=== PATIENT | female | born 1970 | race Caucasian/White ===

== ENCOUNTER 2017-04-20 09:40 | Emergency (ER) | payer MEDICAID, OTHER ==
[~2017-04-20] VITALS: Ht 167.6 cm; Wt 52.0 kg
[~2017-04-20 09:40] MED LIST: CEPH500C3 PO
[2017-04-20 09:42] VITALS: BP 139/81; PULSE 96; RESP 16; TEMP 98.5; O2SAT 99
--- NOTE | 2017-04-20 09:57 | PD ---
HPI Chief Complaint: Back/ Neck Pain or Injury Time Seen by Provider: 09:53 Travel History International Travel<30 days: No Contact w/Intl Traveler<30days: No Traveled to known affect area: No History of Present Illness HPI 47-year-old female complains of low back pain since this morning. She is a history of low back pain previously. There is radiation down the left leg. She states the pain is severe and worse with movement. The patient denies any fever. There has been no urinary retention, fecal incontinence or saddle anesthesia. The patient has no history of steroid or immunomodulators use. She has no history of cancer. She denies IV drug use. PFSH Past Medical History Arthritis: No Asthma: No Autoimmune Disease: No Anxiety: Yes Depression: No Heart Rhythm Problems: No Cancer: No Cardiovascular Problems: No High Cholesterol: No Chemotherapy: No Chest Pain: No Congestive Heart Failure: No COPD: No Cerebrovascular Accident: No Diabetes: No Endocrine: No GERD: No Genitourinary: Yes Hiatal Hernia: No Immune Disorder: No Kidney Stones: No Musculoskeletal: Yes Neurologic: No Psychiatric: Yes Reproductive: No Respiratory: No Migraines: No Radiation Therapy: No Renal Failure: No Seizures: No Sickle Cell Disease: No Sleep Apnea: No Thyroid Disease: No Ulcer: No ?: Not LMP: 02/24/2017-DENIES POSSIBILITY OF Past Surgical History AICD: No Arteriovenous Shunt: No Cardiac Surgery: No Ear Surgery: No Endocrine Surgery: No Eye Surgery: No Genitourinary Surgery: No Gynecologic Surgery: Yes (LAP) Insulin Pump: No Joint Replacement: No Oral Surgery: No Pacemaker: No Thoracic Surgery: No Social History Alcohol Use: Yes (OCCAS. MIX DRINKS) Tobacco Use: Yes (1/2 PPD) Substance Use: No Allergies-Medications (Allergen,Severity, Reaction): Coded Allergies: Bactrim (Verified Allergy, Severe, Hives, 04/20/17) *MDRO Multi-Drug Resistant Organism (Verified Allergy, Unknown, 04/20/17) MRSA Wound (Arm) 2004 Reported Meds & Prescriptions Reported Meds & Active Scripts Active Lortab (Hydrocodone-Acetaminophen) 5-325 Mg Tab 1-2 Tab PO Q6H PRN Review of Systems Except as stated in HPI: all other systems reviewed are Neg General / Constitutional: No: Fever Musculoskeletal: Positive: Pain Physical Exam Narrative GENERAL: 47-year-old female, appears to be in distress due to pain sitting on the side of her bed SKIN: Focused skin assessment warm/dry. HEAD: Atraumatic. Normocephalic. EYES: Pupils equal and round. No scleral icterus. No injection or drainage. ENT: No nasal bleeding or discharge. Mucous membranes pink and moist. NECK: Trachea midline. No JVD. CARDIOVASCULAR: Regular rate and rhythm. No murmur appreciated. RESPIRATORY: No accessory muscle use. Clear to auscultation. Breath sounds equal bilaterally. GASTROINTESTINAL: Abdomen soft, non-tender, nondistended. Hepatic and splenic margins not palpable. MUSCULOSKELETAL: Tenderness to palpation midline lumbar spine. No significant paraspinal tenderness. No gross deformity. NEUROLOGICAL: Knee flexion and extension normal. Ankle flexion and extension normal. Great toe dorsiflexion on the left is limited compared to the right. Hip flexion is equal bilaterally. Patient has normal gait. 2+ DTR reflexes bilaterally. PSYCHIATRIC: Appropriate mood and affect; insight and judgment normal. Data Data Last Documented VS Vital Signs Date Time Temp Pulse Resp B/P Pulse Ox O2 Delivery O2 Flow Rate FiO2 04/20/17 11:28 80 16 108/68 97 Room Air 04/20/17 09:42 98.5 VS reviewed Orders Iv Access Insert/Monitor (04/20/17 10:07) Ecg Monitoring (04/20/17 10:07) Oximetry (04/20/17 10:07) Sodium Chloride 0.9% Flush (Ns Flush) (04/20/17 10:15) Ketorolac Inj (Toradol Inj) (04/20/17 10:15) Hydromorphone Pf Inj (Dilaudid Pf Inj) (04/20/17 10:15) Basic Metabolic Panel (Bmp) (04/20/17 10:22) Complete Blood Count With Diff (04/20/17 10:22) Westergren Sedimentation Rate (04/20/17 10:22) Labs Laboratory Tests Test 04/20/17 10:34 White Blood Count 9.4 TH/MM3 Red Blood Count 4.60 MIL/MM3 Hemoglobin 14.8 GM/DL Hematocrit 45.2 % Mean Corpuscular Volume 98.3 FL Mean Corpuscular Hemoglobin 32.2 PG Mean Corpuscular Hemoglobin 32.8 % Concent Red Cell Distribution Width 13.8 % Platelet Count 318 TH/MM3 Mean Platelet Volume 7.5 FL Neutrophils (%) (Auto) 68.1 % Lymphocytes (%) (Auto) 14.9 % Monocytes (%) (Auto) 13.8 % Eosinophils (%) (Auto) 2.0 % Basophils (%) (Auto) 1.2 % Neutrophils # (Auto) 6.4 TH/MM3 Lymphocytes # (Auto) 1.4 TH/MM3 Monocytes # (Auto) 1.3 TH/MM3 Eosinophils # (Auto) 0.2 TH/MM3 Basophils # (Auto) 0.1 TH/MM3 CBC Comment DIFF FINAL Differential Comment Erythrocyte Sedimentation Rate 1 mm/hr Sodium Level 136 MEQ/L Potassium Level 4.0 MEQ/L Chloride Level 104 MEQ/L Carbon Dioxide Level 20.7 MEQ/L Anion Gap 11 MEQ/L Blood Urea Nitrogen 13 MG/DL Creatinine 0.66 MG/DL Estimat Glomerular Filtration 96 ML/MIN Rate Random Glucose 82 MG/DL Calcium Level 9.0 MG/DL MDM Medical Decision Making Medical Screen Exam Complete: Yes Emergency Medical Condition: Yes Medical Record Reviewed: Yes Differential Diagnosis Myofascial strain, osteoarthritis, herniated disc, spinal stenosis, fracture, septic discitis, epidural abscess, paraspinal abscess Narrative Course CBC & BMP Diagram 04/20/17 10:34 ESR is 1 The patient is resting comfortably and feels better, is alert and in no distress. The patients results and examination findings were discussed. The repeat examination is unremarkable and benign. The history, exam, diagnostic testing, and current condition do not suggest any significant pathology to warrant further testing, continued ED treatment, admission, or surgical evaluation at this point. The vital signs have been stable. The patient does not have uncontrollable pain, intractable vomiting, or other significant symptoms. The patient's condition is stable and appropriate for discharge. The patient will pursue further outpatient evaluation with a primary care physician or other designated or consulting physician as indicated in the discharge instructions. The patient expressed understanding and was agreeable with this plan. Normal gait observed at 12:25 PM. Diagnosis Primary Impression: Low back pain Qualified Code: M54.42 - Acute midline low back pain with left-sided sciatica Referrals: Primary Care Physician 2 days Additional Instructions: You have a choice when it comes to health care, and we are glad that you chose [facility]. Hopefully, we have met your expectations on today's visit. You are welcome to return to [facility] at any time, as we are committed to meeting the health care needs of our community. Med/Other Pt SpecificInfo: Prescription(s) given Scripts Hydrocodone-Acetaminophen (Lortab)5-325 Mg Tab1-2 Tab PO Q6H PRN (PAIN SCALE 6 TO 10) #15 TAB Ref 0 Prov:Maulik Martin MD 04/20/17 Disposition: 01 DISCHARGE HOME Condition: Stable Maulik Martin MD Apr 20, 2017 09:56
[2017-04-20] MEDS ORDERED: HYDROmorphone HCL PF 1 MG/ML VIAL IV PUSH ONE (10:15)
[2017-04-20] MEDS ORDERED: SODIUM CHLORIDE 0.9% FLUSH 10 ML FLUSH IV FLUSH PRN (10:15)
[2017-04-20] MEDS ORDERED: KETOROLAC TROMETHAMINE 30 MG/ML (IVP) VIAL IVP ONE (10:15)
[2017-04-20 10:34] VITALS: BP 117/76; PULSE 81; RESP 18; O2SAT 98
[2017-04-20 10:56] LABS: AUTOMATED NEUTROPHIL # 6.4 TH/MM3 (1.8-7.7); BASOPHIL # 0.1 TH/MM3 (0-0.2); BASOPHIL % 1.2 % (0.0-2.0); EOSINOPHIL # 0.2 TH/MM3 (0-0.4); HEMATOCRIT 45.2 % (35.0-46.0); LYMPH % 14.9 % (9.0-44.0); LYMPHOCYTE # 1.4 TH/MM3 (1.0-4.8); MEAN CELL VOLUME 98.3 FL (80.0-100.0); MEAN CORPUSCULAR HEMOGLOBIN 32.2 PG (27.0-34.0); MEAN CORPUSCULAR HGB CONC 32.8 % (32.0-36.0); MONO % 13.8 % (0.0-8.0); NEUT % 68.1 % (16.0-70.0); PLATELET COUNT 318 TH/MM3 (150-450); RED CELL DISTRIBUTION WIDTH 13.8 % (11.6-17.2); WHITE BLOOD COUNT 9.4 TH/MM3 (4.0-11.0)
[2017-04-20 10:58] LABS: HEMO FLAGS DIFF FINAL
[2017-04-20 11:11] LABS: BICARBONATE 20.7 MEQ/L (21.0-32.0)
[2017-04-20 11:28] VITALS: BP 108/68; PULSE 80; RESP 16; O2SAT 97
[2017-04-20] MEDS ORDERED: HYDR-3533 PO (11:28)
== END 2017-04-20 12:35 | disposition home or self-care (01) ==
LOC: PHED 09:40
DX: M54.42 Lumbago with sciatica, left side (principal); F17.200 Nicotine dependence, unspecified, uncomplicated
CPT/HCPCS: 80048; 85025; 85652; 96374; 96375; 99284; J1170; J1885